=== PATIENT | female | born 1965 | race Caucasian/White ===

== ENCOUNTER 2019-03-29 07:35 | Outpatient (CLI) | payer OTHER, SELFPAY ==
--- NOTE | 2019-03-29 | XR_ITS ---
WS: [id number] LEFT ANKLE: 3 VIEW(S) TECHNIQUE: AP, oblique(s) and lateral. HISTORY: LEFT ANKLE SWELLING COMPARISON: None available. Normal anatomic alignment with no fracture or dislocation. No joint effusion or widening of the ankle mortise. No significant degenerative changes at the joint spaces. Small calcaneal spur measures about 3 mm. XR/XR ankle LT min 3V* [id number] IMPRESSION: 3 mm calcaneal spur.
--- NOTE | 2019-03-29 | XR_ITS ---
WS: [id number] LEFT FOOT: 3 VIEW(S) TECHNIQUE: PA, oblique and lateral. HISTORY: ACUTE FOOT PAIN LEFT COMPARISON: None available. No acute fracture or dislocation. Normal tarsal/metatarsal alignment. Mild soft tissue edema surrounding the metatarsals. There is a small calcaneal spur. XR/XR foot LT min 3V* [id number] IMPRESSION: Mild soft tissue edema around the metatarsals. Extensive small calcaneal spur.
== END 2019-03-29 07:36 | disposition home or self-care (01) ==
LOC: RADOUTREAD 12:08
PROVIDERS: Family Provider Family Medicine; Visit Provider Nurse Practitioner Family
DX: Z76.89 Persons encountering health services in other specified circumstances (principal)

== ENCOUNTER 2019-09-05 08:09 | Outpatient (CLI) | payer OTHER, SELFPAY ==
--- NOTE | 2019-09-05 08:16 | CT_ITS ---
WS: [id number] NONCONTRAST OF LEFT LOWER EXTREMITY CLINICAL INFORMATION: Sinus tarsi TECHNIQUE: Noncontrast left lower extremity with coronal and sagittal reformatted images. Imaging o btained in neutral and supination with foot taped on the supination images. 3-D reformatted images we re obtained. COMPARISON: Ankle March 29, 2019 DLP: 437.[address] scans at [facility] use at least one of these dose optimization techniques: automat ed exposure control; mA and/or kV adjustment per patient size (includes targeted exams where dose is matched to clinical indication); or iterative reconstruction. FINDINGS: Normal ankle mortise. Normal medial and lateral malleolus. Normal talar dome. No widening of the ankl e mortise. Tiny plantar calcaneal spur. Normal soft tissues. No evidence of avascular necrosis of th e talar dome. Normal anterior process of the calcaneus. Normal cuboid and cuneiforms. Partially visua lized metatarsals are normal. Normal second metatarsal and second cuneiform articulation. No evidence of tarsal coalition. Tarsal coalition: None JOINT SPACES (normal joint space 6 mm): Talocalcaneal articulation at Middle talar facet 1.8 mm Talus and tarsal navicular: 2.0 mm 3-D reformat neutral/supination instability evaluation of the calcaneus, talus, and navicular: No abnormal instability between the neutral and supination imaging involving the talocalcaneal and ta lonavicular articulations. Clockwise rotation of the head of the anterior talus and navicular in a s ymmetric fashion relative to the distal tarsal bones and first and second metatarsals. Ankle mortise is preserved. 3. JOINT SPACES (normal joint space 6 mm): Talocalcaneal articulation at Middle talar facet 1.8 mm Talus and tarsal navicular: 2.0 mm 4. No significant abnormal instability between the neutral and supination positions described above. 5. Tiny plantar calcaneal spur. CT/CT ankle LT wo con* [id number] IMPRESSION: 1. Normal ankle mortise. Normal medial and lateral malleolus. 2. No evidence of tarsal coalition.
== END 2019-09-05 08:10 | disposition home or self-care (01) ==
LOC: RADWPI 08:13
PROVIDERS: Family Provider Family Medicine; PCP Family Medicine; Visit Provider Podiatrist Primary Podiatric Medicine
DX: M25.572 Pain in left ankle and joints of left foot (principal)
CPT/HCPCS: 73700

== ENCOUNTER 2020-02-04 08:24 | Outpatient (CLI) | payer OTHER, SELFPAY ==
--- NOTE | 2020-02-04 | US_ITS ---
WS: [id number] ULTRASOUND ABDOMEN LIMITED CLINICAL INFORMATION: SOFT TISSUE MASS COMPARISON: 018 FINDINGS: Ultrasound right and left upper quadrant area of concern. Abdominal wall pannus in the upper abdomen. Echogenic tissue in the right upper quadrant likely represents incidental lipoma measuring 7 x 7 x 4 mm. Incidental normal fatty tissue left upper quadrant. No other significant findings. US/US abdomen limited [id number] IMPRESSION: 1. Echogenic tissue in the right upper quadrant likely represents incidental l ipoma measuring 7 x 7 x 4 mm 2. No suspicious lesions.
--- NOTE | 2020-02-04 08:26 | US_ITS ---
WS: [id number] ULTRASOUND ABDOMEN LIMITED CLINICAL INFORMATION: SOFT TISSUE MASS COMPARISON: 018 FINDINGS: Ultrasound right and left upper quadrant area of concern. Abdominal wall pannus in the upper abdomen. Echogenic tissue in the right upper quadrant likely represents incidental lipoma measuring 7 x 7 x 4 mm. Incidental normal fatty tissue left upper quadrant. No other significant findings.
== END 2020-02-04 08:25 | disposition home or self-care (01) ==
LOC: RADOUTREAD 11:40
PROVIDERS: PCP Family Medicine; Visit Provider Family Medicine
DX: M79.89 Other specified soft tissue disorders (principal)
CPT/HCPCS: 76705

== ENCOUNTER 2020-10-03 09:44 | Emergency (ER) | payer OTHER, SELFPAY ==
[2020-10-03 10:36] VITALS: BP 109/69; PULSE 96; RESP 16; TEMP 37; O2SAT 98; BMI 34.3
--- NOTE | 2020-10-03 11:54 | W.ED.COVID ---
HPI - COVID General: Chief Complaint: COVID symptoms Stated Complaint: BODY ACHES,FEVER, NAUSEA,HEADACHE Time Seen by Provider: 10/03/20 09:47 Triage information: Has fever, cough or shortness of breath. Exposure to COVID + person last 14 days COVID Results: No Data to Display Course Vital Signs: Vital signs: Vital Signs Temperature 98.6 F 10/03/20 10:36 Pulse Rate 96 10/03/20 10:36 Respiratory Rate 16 10/03/20 10:36 Blood Pressure 109/69 10/03/20 10:36 Pulse Oximetry 98 10/03/20 10:36 MDM - COVID COVID Results: No Data to Display Coding Level of Care Code ED Shredded Filler Cigar Maker Machine for Alan Patel
--- NOTE | 2020-10-03 12:06 | XRR_ITS ---
PROCEDURE INFORMATION: Exam: XR Chest Exam date and time: 10/03/2020 12:06 PM Age: 54 years old Clinical indication: Shortness of breath; Additional info: Syncope TECHNIQUE: Imaging protocol: XR of the chest. Views: 1 view. COMPARISON: [facility] Chest 2 views 08/24/2017 5:00 PM FINDINGS: Tubes, catheters and devices: Neurostimulator leads project over the spine. Lungs: Minimal bibasilar atelectasis. No consolidation. Pleural spaces: Unremarkable. No pleural effusion. No pneumothorax. Heart/Mediastinum: Unremarkable. No cardiomegaly. Bones/joints: Unremarkable. XR/XR chest 1V portable [id number] IMPRESSION: No evidence of active cardiopulmonary disease.
--- NOTE | 2020-10-03 12:06 | ECG_ITS ---
[facility] ED Test Date: 2020-10-03 Pat Name: Jocelyn Mack Department: Room: Gender: Female Client Service Administrator: : 1965 Requested By: Kain Fields Order Number: [id number] Leonarda MD: Fina Merrill M.D. Measurements Intervals [place] Rate: 65 P: 47 MA: 161 QRS: 9 QRSD: 104 T: 30 QT: 416 QTc: 434 Interpretive Statements SINUS RHYTHM Compared to ECG 11/10/2016 23:49:13 T-wave abnormality no longer present Electronically Signed On 10-08-2020 9:39:32 CDT by Fina Merrill M.D. [email or web address] [id number]
[2020-10-03 12:26] LABS: Glucose Point of Care 166 mg/dL (70-110)
--- NOTE | 2020-10-03 12:28 | W.ED.COVID ---
HPI - COVID General: Chief Complaint: COVID symptoms Stated Complaint: BODY ACHES,FEVER, NAUSEA,HEADACHE Time Seen by Provider: 10/03/20 09:47 Triage information: Has fever, cough or shortness of breath. Exposure to COVID + person last 14 days History of Present Illness: HPI Narrative: pt with syncope during blood draw. exposed to covid 2 weeka ago. no increase in sx, just not feeling better MD complaint: reported COVID exposure Prior covid testing: no COVID 19 common symptoms: positive fever(s), chills, non-productive cough, fatigue, body aches and headache(s); negative throat pain COVID 19 other sytmptoms: negative chest pain Onset (ago): week(s) (2) Severity: mild Pertinent comorbid conditions: diabetes and hypertension Treatment prior to arrival: acetaminophen and ibuprofen COVID Results: SARS-CoV-2 Antigen (Rapid) Negative (Negative) 10/03/20 13:07 10/03/20 SARS-CoV-2 RNA (RT-PCR) Pending 10/03/20 13:07 10/03/20 Review of Systems Const: Reports: fever(s), chills, body aches and fatigue ENMT: Denies: throat pain or swelling of lips/tongue Card: Denies: chest pain Resp: Reports: non-productive cough Musc: Reports: other (myalgias) Neuro: Reports: headache(s) Psych: Reports: anxiety Physical Exam Const: COMMON NORMALS: no acute distress, patient oriented x3 and healthy appearing GENERAL APPEARANCE: cooperative, ill appearing and well hydrated; not in distress and not anxious HENMT: FACE & SINUS: normal facial exam Eye: COMMON NORMALS: Equal, round and reactive pupils present and EOMs intact bilaterally PUPIL: Yes Equal, round and reactive pupils present Chest: COMMONS NORMALS: normal inspection of the chest Resp: COMMON NORMALS: normal respiratory effort, No retractions and clear to auscultation bilaterally EFFORT & INSPECTION: Yes able to speak in complete sentences AUSCULTATION: clear to auscultation bilaterally Cardio: COMMON NORMALS: regular rate, regular rhythm, No murmurs present (Cardio) and Peripheral pulses 2+ throughout RATE: regular rate RHYTHM: regular rhythm PERIPHERAL PULSES: Peripheral pulses 2+ throughout GI: COMMON NORMALS: Normal to inspection, nondistended, normoactive bowel sounds present, Soft to palpation and non-tender PALPATION: Yes Soft to palpation Extremity: COMMON NORMALS: normal to inspection, full ROM and no pedal edema Neuro: COMMON NORMALS: patient oriented x3 Psych: COMMON NORMALS: mental status grossly normal Skin: COMMON NORMALS: no rashes or lesions noted GENERAL SKIN EXAM: no rashes or lesions noted Course ED course: Patient continued to do well. Vital signs remained stable. Rapid Covid was negative we will still send off PCR test. Explained her PCR test is negative as well she needs to make sure she gets a vaccination letter follow-up with her primary care provider in 3 to 5 days. Otherwise laboratory results were unremarkable she did have a mild elevation in her troponin however given the fact that her syncope was due to having her blood drawn she is not having any current chest pain I do not think we need to draw second 1 on her Reevaluation(s): Reevaluation #1: Patient doing well normal vital signs Time: 14:22 Vital Signs: Vital signs: Vital Signs Temperature 98.6 F 10/03/20 10:36 Pulse Rate 69 10/03/20 14:00 Respiratory Rate 16 10/03/20 14:00 Blood Pressure 115/71 10/03/20 14:00 Pulse Oximetry 97 10/03/20 14:00 MDM - COVID MDM Narrative: Medical decision making narrative: pt with normal vitals, non toxic. exposure to covd 2+ not vaccinated - no reason given. general malasie and weakness x2 weeks. syncope with blood draw - likely vagal but will work up including covid test. evaluate for Monoclonal antibody (not elgible due to time) Differential Diagnosis: Differential diagnosis: Likely COVID 19, other viral infection and other Medical Records: Attestation: I reviewed the patient's medical records. Lab Data: Attestation: I reviewed the patient's lab results. Labs: Lab Results 10/03/20 10/03/20 10/03/20 Range/Units 12:23 12:56 12:56 WBC Cancelled Corrected WBC Cancelled RBC Cancelled Hgb Cancelled Hct Cancelled MCV Cancelled MCH Cancelled MCHC Cancelled RDW Cancelled Plt Count Cancelled MPV Cancelled Gran % Cancelled Neut % (Auto) Cancelled Lymph % (Auto) Cancelled [place] % (Auto) Cancelled Eos % (Auto) Cancelled Baso % (Auto) Cancelled Neut # (Auto) Cancelled Lymph # (Auto) Cancelled [place] # (Auto) Cancelled Eos # (Auto) Cancelled Baso # (Auto) Cancelled Absolute Gran (aut o) Cancelled Nucleated RBC % (a uto) Cancelled Nucleated RBCs # Cancelled Sodium Cancelled Potassium Cancelled Chloride Cancelled Carbon Dioxide Cancelled Anion Gap Cancelled BUN Cancelled Creatinine Cancelled GFR Calculation Cancelled Glucose Cancelled POC Glucose 166 H (70-110) mg/dL Calculated Osmolal ity Cancelled Lactic Acid (0.5-2.2) mmol/L Calcium Cancelled Magnesium (1.7-2.3) mg/dL Total Bilirubin Cancelled AST Cancelled ALT Cancelled Alkaline Phosphata se Cancelled Troponin T Gen 5 n g/L Troponin T Baselin e (0-10) ng/L C-Reactive Protein (0.0-4.9) mg/L NT-Pro-B Natriuret Pep (0-125) pg/mL Total Protein Cancelled Albumin Cancelled Globulin Cancelled SARS-CoV-2 Ag (Rap id) (Negative) 10/03/20 10/03/20 10/03/20 Range/Units 12:56 12:56 12:56 WBC Corrected WBC RBC Hgb Hct MCV MCH MCHC RDW Plt Count MPV Gran % Neut % (Auto) Lymph % (Auto) [place] % (Auto) Eos % (Auto) Baso % (Auto) Neut # (Auto) Lymph # (Auto) [place] # (Auto) Eos # (Auto) Baso # (Auto) Absolute Gran (aut o) Nucleated RBC % (a uto) Nucleated RBCs # Sodium 138 Potassium 3.3 L Chloride 98 Carbon Dioxide 24 Anion Gap 19.3 H BUN 12 Creatinine 0.8 GFR Calculation 74.7 L Glucose 146 H POC Glucose (70-110) mg/dL Calculated Osmolal ity 288 Lactic Acid 1.1 (0.5-2.2) mmol/L Calcium 8.1 L Magnesium 2.1 (1.7-2.3) mg/dL Total Bilirubin 0.4 AST 105 H ALT 154 H Alkaline Phosphata se 81 Troponin T Gen 5 n g/L Cancelled Troponin T Baselin e (0-10) ng/L C-Reactive Protein 32.4 H (0.0-4.9) mg/L NT-Pro-B Natriuret Pep 13 (0-125) pg/mL Total Protein 6.6 Albumin 3.9 Globulin 2.7 SARS-CoV-2 Ag (Rap id) (Negative) 10/03/20 10/03/20 Range/Units 12:56 13:07 WBC Corrected WBC RBC Hgb Hct MCV MCH MCHC RDW Plt Count MPV Gran % Neut % (Auto) Lymph % (Auto) [place] % (Auto) Eos % (Auto) Baso % (Auto) Neut # (Auto) Lymph # (Auto) [place] # (Auto) Eos # (Auto) Baso # (Auto) Absolute Gran (aut o) Nucleated RBC % (a uto) Nucleated RBCs # Sodium Potassium Chloride Carbon Dioxide Anion Gap BUN Creatinine GFR Calculation Glucose POC Glucose (70-110) mg/dL Calculated Osmolal ity Lactic Acid (0.5-2.2) mmol/L Calcium Magnesium (1.7-2.3) mg/dL Total Bilirubin AST ALT Alkaline Phosphata se Troponin T Gen 5 n g/L Troponin T Baselin e 12 H (0-10) ng/L C-Reactive Protein (0.0-4.9) mg/L NT-Pro-B Natriuret Pep (0-125) pg/mL Total Protein Albumin Globulin SARS-CoV-2 Ag (Rap id) Negative (Negative) EKG Data: EKG 1: Attestation: I personally reviewed and interpreted this EKG as follows: EKG interpretation date: 10/03/20 EKG interpretation time: 14:06 (12:30) Prior EKG tracings: not available for review Ischemic changes: other (Normal sinus rhythm no evidence of ischemia or infarct rate of 65 normal axis) COVID Results: SARS-CoV-2 Antigen (Rapid) Negative (Negative) 10/03/20 13:07 10/03/20 SARS-CoV-2 RNA (RT-PCR) Pending 10/03/20 13:07 10/03/20 Discharge Plan Discharge Patient Disposition: Home Clinical Impression: Exposure to severe acute respiratory syndrome coronavirus 2 (SARS-CoV-2) Condition: Stable Prescriptions: No Action valsartan-hydrochlorothiazide 160-12.5 mg tablet 1 tab PO DAILY RF: 0 aspirin 81 mg Tablet,Chewable 81 mg PO DAILY RF: 0 sertraline 50 mg tablet 50 mg PO DAILY RF: 0 duloxetine 20 mg capsule,delayed release(DR/EC) 20 mg PO BID RF: 0 Discharge Orders: Discharge ED (Routine); Ordered 10/03/20 Ordered By: Kain Marc Referrals: Deion Campos MD [Primary Care Provider] - Discharge Activity: Resume usual activity Patient Instructions: Bronchitis (Acute) - Adult Activity Restrictions/Additional Instructions: Follow-up with your primary care provider in 3 to 5 days. We will contact you with your more accurate Covid test. If it is negative I strongly encourage you to get vaccinated. Make sure you are socially distancing and wearing masks when you are in public. Return to the emergency department with any new or worsening symptoms including shortness of breath, chest pain or any other concerning symptoms Coding Level of Care Code ED Produce Assistant for Alan Fwveronica Exam Comprehensive
[2020-10-03 12:30] VITALS: BP 95/64; PULSE 69; RESP 16; O2SAT 93; O2SAT 94
[2020-10-03 13:17] LABS: Basophils % 0.3 %; Hematocrit 43.2 % (37.0-47.0); Hemoglobin 14.5 g/dL (11.5-15.3); Lymphocytes # 1.8 10^3/uL (0.8-4.8); Lymphocytes % 27.2 %; Mean Corpuscular HGB Conc 33.6 g/dL (30.0-36.0); Mean Corpuscular Hemoglobin 28.4 pg (28.0-34.0); Mean Corpuscular Volume 84.7 fL (81-99); Mean Platelet Volume 9.9 fL (7.4-10.4); Monocytes # 0.3 10^3/uL (0.2-0.9); Monocytes % 3.9 %; Neutrophils # 4.59 10^3/uL (1.8-7.7); Neutrophils % 68.2 %; Nucleated Red Blood Cells % 0 %; Platelet Count 208 10^3/cmm (130-400); Red Cell Distribution Width 12.7 % (12.1-15.1); White Blood Count 6.7 10^3/uL (4.0-10.0)
[2020-10-03 13:51] LABS: SARS Covid-2 Antigen Negative (Negative)
[2020-10-03 13:57] LABS: Lactic Sepsis W/Reflex 1.1 mmol/L (0.5-2.2)
[2020-10-03 13:59] LABS: Troponin(5th) Baseline 12 ng/L (0-10)
[2020-10-03 14:00] VITALS: BP 115/71; PULSE 69; RESP 16; O2SAT 97
[2020-10-03 14:04] LABS: Alanine Aminotransferase 154 U/L (0-33); Albumin Level 3.9 g/dL (3.5-5.2); Alkaline Phosphatase 81 IU/L (35-105); Aspartate Amino Transferase 105 U/L (0-32); Blood Urea Nitrogen 12 mg/dL (6-20); C Reactive Protein 32.4 mg/L (0.0-4.9); Calcium 8.1 mg/dL (8.5-10.5); Carbon Dioxide 24 mmol/L (22-29); Chloride 98 mmol/L (98-107); Creatinine Clr Calc Pharmacy 87.7038; Globulin 2.7 g/dL (1.3-4.6); Glomerular Filtration Rate 74.7 mL/min (90-130); Glucose 146 mg/dL (65-115); Magnesium 2.1 mg/dL (1.7-2.3); NT Pro B Type Natriuretic Pept 13 pg/mL (0-125); Osmolality Calculated 288 mOsm/kg (285-295); Sodium 138 mmol/L (136-145); Total Bilirubin 0.4 mg/dL (0.15-1.2); Total Protein 6.6 g/dL (6.6-8.7)
[2020-10-03 14:15] LABS: Anion Gap 19.3 (5-19)
[2020-10-03 14:16] LABS: Potassium 3.3 mmol/L (3.5-5.1)
[2020-10-03 14:31] LABS: Slide Review Slide Review Perform
[2020-10-03 14:47] VITALS: BP 124/66; PULSE 68; RESP 20; O2SAT 96
[2020-10-05 03:07] LABS: Quest SARS-CoV-2 RNA DETECTED (NOT DETECTED)
--- NOTE | 2020-10-06 07:50 | PC.NURSE ---
PT CONTACTED AND GIVEN THE RESULTS OF HER COVID TEST
== END 2020-10-03 14:50 | disposition home or self-care (01) ==
PROVIDERS: Physician Assistant; Emergency Provider Family Medicine; PCP Family Medicine
DX: U07.1 COVID-19 (principal); Z79.82 Long term (current) use of aspirin
CPT/HCPCS: 36416; 71045; 80053; 82962; 83605; 83735; 83880; 84484; 85025; 86140; 87426; 87635; 93005; 99284

== ENCOUNTER 2021-01-06 08:27 | Outpatient (CLI) | payer OTHER, SELFPAY ==
--- NOTE | 2021-01-06 08:34 | MM_ITS ---
WS: [id number] BILATERAL DIGITAL SCREENING MAMMOGRAPHY WITH CAD CLINICAL INFORMATION: SCREENING HISTORY: Screening mammogram. No current complaints. COMPARISON: TECHNIQUE: Bilateral CC and MLO views. FINDINGS: Scattered fibroglandular densities bilaterally. Stable benign punctate calcifications. A few stable l eft ovoid asymmetries. No suspicious focal mass, asymmetry, calcifications, or architectural distorti on. No evidence of malignancy. MM/[place] [id number] IMPRESSION: BI-RADS: 2-Benign FOLLOW UP: 1 Year Follow-up Recommend return to annual screening mammography.
== END 2021-01-06 08:28 | disposition home or self-care (01) ==
LOC: RADSHAW 08:32
PROVIDERS: PCP Family Medicine; Visit Provider Family Medicine
DX: Z12.31 Encounter for screening mammogram for malignant neoplasm of breast (principal)
CPT/HCPCS: 77067

== ENCOUNTER → 2022-12-13 15:48 | Outpatient (BNVA) | payer OTHER, SELFPAY | PROVIDERS: PCP Family Medicine; Visit Provider Physician Assistant | DX: M51.36 Other intervertebral disc degeneration, lumbar region (principal); T85.192A Other mechanical complication of implanted electronic neurostimulator of spinal cord electrode (lead), initial encounter; X58.XXXA Exposure to other specified factors, initial encounter | CPT/HCPCS: 72110 ==

== ENCOUNTER 2023-01-17 10:30 | Outpatient (CLI) | payer OTHER, SELFPAY ==
[2023-01-17 11:22] LABS: Basophils # 0.1 10^3/uL (0.0-0.1); Basophils % 0.8 %; Eosinophils # 0.1 10^3/uL (0.0-0.8); Eosinophils % 1.6 %; Hematocrit 43.9 % (36-47); Lymphocytes # 3.2 10^3/uL (0.8-4.8); Lymphocytes % 41.9 %; Mean Corpuscular HGB Conc 32.6 g/dL (30-55); Mean Corpuscular Hemoglobin 29.2 pg (27-33); Mean Corpuscular Volume 89.8 fl (85-98); Mean Platelet Volume 9.7 fL (7.4-10.4); Monocytes # 0.5 10^3/uL (0.2-0.9); Monocytes % 6.7 %; Neutrophils # 3.68 10^3/uL (1.8-7.7); Neutrophils % 48.7 %; Nucleated Red Blood Cells % 0 %; Platelet Count 247 10^3/cmm (157-399); Red Blood Count 4.89 10^6/uL (3.85-5.65); Red Cell Distribution Width 13.1 % (12.1-15.1); White Blood Count 7.56 10^3/uL (3.29-11.43)
[2023-01-17 11:50] LABS: Alanine Aminotransferase 43 U/L (0-33); Albumin Level 4.3 g/dL (3.5-5.2); Alkaline Phosphatase 65 U/L (35-105); Anion Gap 16.5 (5-19); Aspartate Amino Transferase 28 U/L (0-32); Blood Urea Nitrogen 12 mg/dL (6-20); Calcium 9.1 mg/dL (8.5-10.5); Carbon Dioxide 22 mmol/L (22-29); Chloride 103 mmol/L (98-107); Glucose 127 mg/dL (65-115); Osmolality Calculated 287 mOsm/kg (285-295); Potassium 3.5 mmol/L (3.5-5.1); Sodium 138 mmol/L (136-145); Total Bilirubin 0.3 mg/dL (0.15-1.2); Total Protein 7.3 g/dL (6.6-8.7)
[2023-01-17 12:51] LABS: Add Urine Microscopic? NO; Charge for UA Resulting for Rev
[2023-01-17 12:58] LABS: Urine Appearance Clear (CLEAR); Urine Color Yellow (Yellow)
[2023-01-17 12:59] LABS: Bilirubin Urine Neg (Negative); Blood Urine Neg (Negative); Glucose Urine UA Norm (Normal); Ketones Urine Negative (Negative); Leukocyte Esterase Urine Negative (Negative); Nitrate Urine Negative (Negative); Protein Urine Neg (Negative); Urobilinogen Urine Neg (Negative); pH Urine 5 (5-7)
[2023-01-18 08:32] LABS: Estmated Average Glucose 154
== END 2023-01-17 10:31 | disposition home or self-care (01) ==
PROVIDERS: Family Medicine; PCP Family Medicine; Visit Provider Orthopaedic Surgery
DX: Z01.818 Encounter for other preprocedural examination (principal); T85.192A Other mechanical complication of implanted electronic neurostimulator of spinal cord electrode (lead), initial encounter; Y83.8 Other surgical procedures as the cause of abnormal reaction of the patient, or of later complication, without mention of misadventure at the time of the procedure
CPT/HCPCS: 36415; 80053; 81003; 83036; 85025

== ENCOUNTER 2023-02-17 06:02 | Day surgery (SDC) | payer OTHER, SELFPAY ==
[2023-02-17] VITALS (7 sets, daily range): BP systolic 106–179; BP diastolic 55–92; PULSE 62–77; RESP 16–18; TEMP 36.1–36.6; O2SAT 97–98; BMI 34.3
--- NOTE | 2023-02-17 | XR_ITS ---
WS: [id number] INTRAOPERATIVE TECHNIQUE: 4 Spot fluoroscopic images for intraoperative purposes. FLUOROSCOPY TIME: 5.3 seconds CLINICAL INFORMATION: OR pic, SCS removal COMPARISON: None. FINDINGS: Intraoperative images for spinal stimulator removal IMPRESSION: Images obtained for intraoperative purposes.
[2023-02-17] MEDS: sodium chloride 0.9% 1,000 ML 30 ML IV (06:30)
--- NOTE | 2023-02-17 06:31 | W.PM.OPSUD ---
Surgery/Procedure H&P Update DATE OF PROCEDURE: February 17, 2023 DATE H&P PERFORMED: 01/18/23 H&P UPDATE INFORMATION: I have reviewed H&P completed within last 30 days, I have examined patient prior to procedure and No changes to prior documentation PREOP DIAGNOSIS: Failed Spinal Cord Stim PLANNED PROCEDURE: Operation Date: 02/17/23 07:00 Proposed Procedures p Spinal Cord Stimulator Removal(Not Applicable) - Russel Stewart DO
[2023-02-17] MEDS: ceFAZolin 2,000 MG in sodium chloride 0.9% (plus) 50 ML 100 MG IV (07:03)
--- NOTE | 2023-02-17 07:24 | ANES.PREANE2 ---
Pre-Anesthetic Assessment Height/Weight: Height 1.63 m Weight 90.718 kg Temp Pulse Resp BP Pulse Ox O2 Del Method 97.9 F 77 18 179/74 97 Room Air 02/17/23 06:16 02/17/23 06:16 02/17/23 06:16 02/17/23 06:16 02/17/23 06:16 02/17/23 06:21 Preop Diagnosis: Failed Spinal Cord Stim Operation Date: 02/17/23 07:00 Proposed Procedures p Spinal Cord Stimulator Removal(Not Applicable) - Russel Stewart DO Last intake: Intake Last Liquid Date 02/16/23 Last Liquid Time 23:00 Last Solid Date 02/16/23 Last Solid Time 19:00 Social No alcohol and No tobacco Airway Submandibular: within normal limits Cervical ROM: within normal limits Mallampati: Class II Pulmonary None reported CV/HEM Hypertension None reported Hepatic None reported GI None reported Metabolic Morbid Obesity Musc/skel Lower Back Pain Neuropsych None reported Anesthetic Plan ASA status: 2 Anesthesia: Anesthesia Evaluation and MAC Risk of > 500 ml blood loss (7ml/kg in children): No Medications/Allergies Home Medications Medication Instructions Recorded Confirmed Last Taken Type aspirin 81 mg chewable tablet 81 mg PO DAILY 10/03/20 02/16/23 02/15/23 History sertraline 50 mg tablet 50 mg PO DAILY 10/03/20 02/16/23 02/16/23 History valsartan 160 1 tab PO DAILY 10/03/20 02/16/23 02/16/23 History mg-hydrochlorothiazide 12.5 mg tablet hydrocodone 5 mg-acetaminophen 325 1 - 2 tab PO .Q4-6H #40 tabs 02/17/23 Unknown Rx mg tablet Allergies Allergy/AdvReac Type Severity Reaction Status Date / Time No Known Allergies Allergy Verified 02/16/23 08:39 Data Anesthesia Cardiac Studies: No Data to Display
[2023-02-17] MEDS: lidocaine-epi 1% PF 1:200,000 30 mL SDV INJECTION (07:29)
[2023-02-17] MEDS: vancomycin 1,000 MG SDV 1000 MG XX (07:31)
--- NOTE | 2023-02-17 07:35 | P.OP_ITS ---
Operative Report Date of procedure: February 17, 2023 Pre-op diagnosis: Nonfunctioning neurostimulator Post-op diagnosis: same Procedure done: 1. Removal of battery for neurostimulator 2. Removal of neurostimulator percutaneous lead Surgeon: Russel Stewart DO Production Consultant: Everardo You Production Consultant: The rn medical surgical, Everardo You, CODEY was needed for his expertise under the microscope. He was important and necessary throughout the procedure to complete in a safe and timely manner. He assisted with patient positioning prepping and draping tissue retraction suctioning of the operative field protection of the dural sac and tissue closure Estimated blood loss (mL): 5 Procedure: 1. Removal of battery for neurostimulator 2. Removal of neurostimulator percutaneous lead Patient was brought to the operative suite after going anesthesia was placed in the prone position. All areas impingement well-padded. Skin incision made over the battery dissection was made down to the battery the battery was sewn in this was cut suture and then the battery was removed. Next skin incision made over the area where the percutaneous lead was tied and. The anchors that were used were identified these were removed and then the percutaneous lead was pulled. The wire was cut by the battery and then the wires were pulled through and all the wires were pulled out of the second incision. Wounds were irrigated fluor oscopy was brought in to make sure there is no remaining wires this was all taken out. Once the this was confirmed the wounds were closed in layered fashion with Vicryl and Monocryl suture. Sterile dressing applied patient transferred to the PACU in stable condition.
--- NOTE | 2023-02-17 07:54 | SUR.PHASEI ---
07:45 RECEIVED PT FROM OR STAFF. A+O X3. VENTILATING WELL. ROM AND SENSATION ALL 4 EXTREMITIES.
--- NOTE | 2023-02-17 14:01 | ANE.PACU2 ---
Inpatient post-anesthesia follow up: Airway intact: Yes Vital signs: Temperature 97.9 F Pulse Rate 66 Respiratory Rate 16 Blood Pressure 146/72 Pulse Oximetry 97 Oxygen Delivery Me thod Room Air Oxygen Flow Rate Fraction of Inspir ed Oxygen Hydration adequate: Yes Nausea and vomiting: No Pain level: 2 Mental status: Baseline
== END 2023-02-17 09:27 | disposition home or self-care (01) ==
PROVIDERS: PCP Family Medicine; Visit Provider Orthopaedic Surgery
PROC: (CPT 63661; principal; 2023-02-17 07:00)
DX: T85.192A Other mechanical complication of implanted electronic neurostimulator of spinal cord electrode (lead), initial encounter (principal); E66.01 Morbid (severe) obesity due to excess calories; Z68.34 Body mass index [BMI] 34.0-34.9, adult; Z79.82 Long term (current) use of aspirin; Y82.9 Unspecified medical devices associated with adverse incidents
CPT/HCPCS: 63661; 63688; 72020; 76000; J0690; J2704; J3010; J3370; J3490; J7030

== ENCOUNTER 2024-01-08 11:00 | Outpatient (CLI) | payer OTHER, SELFPAY ==
--- NOTE | 2024-01-08 11:10 | MM_ITS ---
WS: [id number] BILATERAL SCREENING DIGITAL TOMOSYNTHESIS MAMMOGRAM WITH CAD HISTORY: SCREENING COMPARISON: 01/06/2021, 01/24/2018 Bilateral CC and MLO views with tomosynthesis and synthetic mammography submitted. Computer aided det ection analyzed. Breast composition: There are scattered areas of fibroglandular density. No suspicious masses, microc alcifications or architectural distortion. Scattered calcifications in each breast. MM/MM scr BI tomosynthesis [id number] IMPRESSION: BI-RADS: 2 - Benign. FOLLOW UP: 1 Year Follow-up
== END 2024-01-08 11:10 | disposition home or self-care (01) ==
PROVIDERS: PCP Family Medicine; Visit Provider Family Medicine
DX: Z12.31 Encounter for screening mammogram for malignant neoplasm of breast (principal); R92.323 Mammographic fibroglandular density, bilateral breasts; R92.1 Mammographic calcification found on diagnostic imaging of breast
CPT/HCPCS: 77063; 77067